=== PATIENT | male | born 1950 | race Caucasian/White ===

== ENCOUNTER 2017-01-20 09:33 | Emergency (ER) | payer MEDICARE ==
--- NOTE | 2017-01-20 10:28 | C.PDOC ---
History Of Present Illness 66 y/o male brought in by EMS, pmhx diabetes, CABG, cardiac stents, HTN, high cholesterol presents to the ED with complains of allergic reaction. Pt states he woke up this morning feeling normal, ate beans for breakfast and took diabetic medication. He then took Aleve for back pain and 5 minutes later he felt his blood pressure drop and his body became very red and itchy and felt weak. Per patient's son, he had PNA vaccination yesterday. Denies similar symptoms in the past. Denies SOB, vomiting, chest pain or any other complaints. Time Seen by Provider: 01/20/17 10:13 Chief Complaint (Nursing): Medical Clearance History Per: Patient History/Exam Limitations: no limitations Onset/Duration Of Symptoms: Mins Current Symptoms Are (Timing): Still Present Severity: Moderate Recent travel outside of the [place]: No Additional History Per: Family Past Medical History Reviewed: Historical Data, Nursing Documentation, Vital Signs Vital Signs: Last Vital Signs Temp 98.1 F 01/20/17 12:32 Pulse 60 01/20/17 13:33 Resp 18 01/20/17 13:33 BP 132/56 L 01/20/17 13:33 Pulse Ox 95 01/20/17 13:54 - Medical History PMH: HTN Surgical History: CABG, Coronary Stent Family History: States: Unknown Family Hx - Social History Hx Alcohol Use: No Hx Substance Use: No - Immunization History Hx Pneumococcal Vaccination: Yes (01/19/17) Review Of Systems Except As Marked, All Systems Reviewed And Found Negative. Constitutional: Positive for: Weakness. Negative for: Fever, Chills Cardiovascular: Negative for: Chest Pain Respiratory: Negative for: Shortness of Breath Gastrointestinal: Negative for: Vomiting, Abdominal Pain Skin: Positive for: Rash (diffuse redness and itching) Physical Exam - Physical Exam Appears: Non-toxic, No Acute Distress Skin: Warm, Dry, No Rash, Other (chest red and flushed, no hives) Head: Atraumatic, Normacephalic Oral Mucosa: Moist Neck: Normal, Normal ROM, Supple Chest: Symmetrical, No Tenderness, Other (midline scar) Cardiovascular: Rhythm Regular, No Murmur Respiratory: Normal Breath Sounds, No Rales, No Rhonchi, No Wheezing Gastrointestinal/Abdominal: Normal Exam, Soft, No Tenderness Extremity: Normal ROM, No Pedal Edema Extremity: Bilateral: Atraumatic Neurological/Psych: Oriented x3, Normal Speech, Normal Motor, Normal Sensation ED Course And Treatment - Laboratory Results Result Diagrams: 01/20/17 11:03 01/20/17 11:03 O2 Sat by Pulse Oximetry: 95 (room air) Pulse Ox Interpretation: Normal Medical Decision Making Medical Decision Making: Patient feeling much better. Discussed with Dr. Kumar. Disposition Counseled Patient/Family Regarding: Studies Performed, Diagnosis - Disposition Disposition: HOME/ ROUTINE Disposition Time: 13:48 Condition: GUARDED Additional Instructions: Follow up with your doctor and perhaps an disk operator. Avoid all Aleve, Ibuprophen, Motrin. Take Tylenol for pain. Prescriptions: DiphenhydrAMINE [Benadryl] 1 cap PO Q6H PRN #30 cap PRN Reason: rash Epinephrine HCl [Epipen Auto-Injector] 1 unit IM ONCE #2 units Methylprednisolone [Medrol Dose Pack (21 tabs)] 4 mg PO DAILY #21 mg Instructions: Anaphylaxis (ED) Forms: General Discharge Instructions - POA Present On Arrival: None - Clinical Impression Clinical Impression: Anaphylactic reaction - Scribe Statement The provider has reviewed the documentation as recorded by the Tanner Kaur Provider Attestation: All medical record entries made by the Stanislavibe were at my direction and personally dictated by me. I have reviewed the chart and agree that the record accurately reflects my personal performance of the history, physical exam, medical decision making, and the department course for this patient. I have also personally directed, reviewed, and agree with the discharge instructions and disposition.
[2017-01-20] MEDS ORDERED: Sodium Chloride 0.9% 1,000 ML IV ONE (10:42)
[2017-01-20] MEDS ORDERED: Dexamethasone 4 mg/1 ml IVP STA (10:45)
[2017-01-20] MEDS ORDERED: Sodium Chloride 0.9% 1,000 ML ONE (10:47)
[2017-01-20] MEDS ORDERED: Dexamethasone 4 mg/1 ml ONE (10:55)
--- NOTE | 2017-01-20 11:07 | RAD ---
HISTORY: chest pain COMPARISON: None available. TECHNIQUE: Chest, one view. FINDINGS: Examination limited by habitus and hypoinflation. LUNGS: Patchy [id number]-right lower lobe infiltrates. Mild pulmonary venous congestion. No significant pleural effusion or definite pneumothorax identified. Please note that chest x-ray has limited sensitivity for the detection of pulmonary masses. CARDIOVASCULAR: Median sternotomy wires with evidence of CABG. Heart size appears within normal limits. OSSEOUS STRUCTURES: Degenerative changes of the spine. VISUALIZED UPPER ABDOMEN: Unremarkable. OTHER FINDINGS: None. IMPRESSION: Patchy mild [id number]-right lower lobe infiltrates. Mild pulmonary venous congestion.
[2017-01-20 11:10] LABS: BASO % 0.1 % (0.0-2.0); EOS # 0.1 K/uL (0.0-0.7); HEMATOCRIT 48.2 % (35.0-51.0); LYMPH # 2.9 K/uL (1.0-4.3); LYMPH % 49.5 % (20.0-40.0); MEAN CELL VOLUME 85.4 fL (80.0-94.0); MEAN CORPUSCULAR HEMOGLOBIN 27.5 pg (27.0-31.0); MEAN CORPUSCULAR HGB CONC 32.2 g/dL (33.0-37.0); MEAN PLATELET VOLUME 9.3 fL (7.2-11.7); MONO # 0.3 K/uL (0.0-0.8); MONO % 4.5 % (0.0-10.0); NRBC % 0.2 % (0.0-2.0); RED CELL DISTRIBUTION WIDTH 12.7 % (11.5-14.5); WHITE BLOOD COUNT 5.8 K/uL (4.8-10.8)
[2017-01-20 11:16] LABS: CHLORIDE 96 mmol/L (98-107); SODIUM 133 mmol/L (132-148)
[2017-01-20 11:17] LABS: POTASSIUM 3.5 mmol/L (3.6-5.2)
[2017-01-20 11:19] LABS: ALB/GLOB RATIO 1.2 (1.0-2.1); ALKALINE PHOSPHATASE 58 U/L (38-126); ALT/SGPT 23 U/L (21-72); AST/SGOT 20 U/L (17-59); BILIRUBIN,TOTAL 0.8 mg/dL (0.2-1.3); BLOOD UREA NITROGEN 22 mg/dL (9-20); CARBON DIOXIDE 24 mmol/L (22-30); GFR AFRICAN-AMERICAN > 60; GLUCOSE,RANDOM 239 mg/dL (75-110); TOTAL PROTEIN 6.8 g/dL (6.3-8.3)
[2017-01-20 11:20] LABS: CALCIUM 8.5 mg/dl (8.6-10.4)
[2017-01-20 12:33] VITALS: TEMP 98.1
[2017-01-20 13:34] VITALS: BP 132/56; PULSE 60; RESP 18
[2017-01-20 13:50] VITALS: O2SAT 95
--- NOTE | 2017-01-23 13:02 | CARD ---
APPROVED REPORT EKG Measurement Heart [id number] <Conclusion> Sinus bradycardia Right bundle branch block Left anterior fascicular block Bifascicular block Minimal voltage criteria for LVH, may be normal variant Possible Lateral infarct, age undetermined Abnormal ECG
== END 2017-01-20 14:29 | disposition home or self-care (01) ==
LOC: C.ER 09:33
DX: T88.6XXA Anaphylactic reaction due to adverse effect of correct drug or medicament properly administered, initial encounter (principal); T39.315A Adverse effect of propionic acid derivatives, initial encounter
CPT/HCPCS: 71010; 80053; 83880; 84484; 85025; 96361; 96374; 96375; 99285; J1100; J2405; J7040